=== PATIENT | female | born 1940 | race Caucasian/White ===

== ENCOUNTER 2021-02-01 06:18 | Inpatient (IN) | payer MEDICARE, OTHER, SELFPAY ==
[2020-12-28 09:51] VITALS: BMI 19.4
[2021-02-01] VITALS (12 sets, daily range): BP systolic 116–187; BP diastolic 63–98; PULSE 75–101; RESP 10–16; TEMP 36–36.9; O2SAT 92–99; BMI 19.4
[2021-02-01] MEDS: ACETAMINOPHEN 325 MG TABLET 975 MG PO ×2 (07:20→20:21)
[2021-02-01] MEDS: CELECOXIB 200 MG CAPSULE PO (07:21)
[2021-02-01] MEDS: PREGABALIN 75 MG CAPSULE PO (07:21)
[2021-02-01] MEDS: VANCOMYCIN 1,000 MG/200 ML PIGGYBACK 200 MG IV ×2 (07:21→18:31)
[2021-02-01] MEDS: LACTATED RINGERS 1,000 ML 84 ML IV (07:26)
--- NOTE | 2021-02-01 07:35 | PM.PREOP ---
Pre-operative Note Interval Note History & Physical reviewed/Exam performed by Physician: Yes Changes to H&P: No
--- NOTE | 2021-02-01 07:36 | PM.HP.1 ---
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 Patient History Medical History Anxiety Asthma Celiac disease Easy bruisability GERD (gastroesophageal reflux disease) HLD (hyperlipidemia) HTN (hypertension) Hypothyroid Inflammation Memory changes Osteoarthritis Sleep disorder Surgical History History of esophagogastroduodenoscopy (EGD) History of hysterectomy History of total left hip replacement History of total right hip replacement History of total right knee replacement Hx of cholecystectomy S/P left unicompartmental knee replacement Family & Social History Social History: household members spouse Prior Living Arrangements House Safety & Behavioral: Feels Safe in Current Yes Environment Been Physically Hurt or No Threatened By a Person Suicidal Ideation Description None Suicide Plan Description No Plan Tobacco & Substance use: Tobacco type cigarettes Smoking Status Former smoker alcohol intake current alcohol intake frequency a few times a month Substance Use Type does not use Meds Home Medications and Allergies Home Medications Medication Instructions Recorded Confirmed Type albuterol sulfate 90 mcg/actuation 1 - 2 inh INHALATION Q6H PRN 12/28/20 02/01/21 History aerosol inhaler atorvastatin 10 mg tablet 10 mg PO QPM 12/28/20 02/01/21 History carboxymethylcellulose sodium 1 % 1 drp EYE-BOTH TID 12/28/20 02/01/21 History eye drops in a dropperette cyclosporine 0.05 % eye drops in a 1 drp EYE-BOTH BEDTIME 12/28/20 02/01/21 History dropperette (Restasis) levothyroxine 125 mcg tablet 125 mcg PO DAILY 12/28/20 02/01/21 History losartan 100 mg tablet 100 mg PO QAM 12/28/20 02/01/21 History loteprednol etabonate 0.5 % eye 1 drp EYE-BOTH BEDTIME 12/28/20 02/01/21 History drops,suspension mirtazapine 15 mg tablet 15 mg PO BEDTIME 12/28/20 02/01/21 History pantoprazole 40 mg tablet,delayed 40 mg PO BID 12/28/20 02/01/21 History release paroxetine HCl 10 mg tablet 15 mg PO QAM 12/28/20 02/01/21 History Allergies Allergy/AdvReac Type Severity Reaction Status Date / Time Penicillins Allergy Intermediate Rash-streak Verified 02/01/21 06:52 up my arm wheat Allergy Intermediate celiac's Verified 02/01/21 06:52 disease Exam Vital Signs (past 8 hours): - 02/01/21 07:28 Temperature 98.2 F Pulse Rate 75 Respiratory Rate 16 Blood Pressure 186/90 H Pulse Oximetry 99 Oxygen Delivery Method Room Air Narrative Exam Narrative: Significantly decreased range of motion to the left shoulder joint. Quite a bit of pain and crepitus with both active and passive range of motion shoulder. No sign of any shoulder instability. Still has normal rotator cuff function. Difficulty with forward flexion and abduction beyond 90?. External rotation 15? with the arm at the side internal rotation to back pocket. 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 Patient is interested in proceeding with a left total shoulder arthroplasty. The risk, benefits, alternatives, possible complications, operative course, and postop outcomes were discussed. Complications including but not limiting to bleeding, infection, fracture, nerve injury, continued pain postoperatively or instability postoperatively were discussed in detail. Medical complications including but not limited to deep venous thrombosis event, anesthesia complications with excessive bleeding, vascular events or cardiac events and other possible complications were discussed in detail. Need for postoperative rehabilitation and anticipated hospital stay and clinical course were discussed in detail. Patient acknowledges understanding and elects to proceed with surgery. Time Spent With Patient Critical Care time: I spent a total of [] minutes of critical care time on this patient's care today; this time is exclusive of procedural time.
--- NOTE | 2021-02-01 08:01 | SUR.PREOP ---
Block start time [0743] . Monitoring initiated and maintained throughout procedure. Oxygen and medications given per anesthesiologist instructions. Patient remained stable throughout procedure, no adverse reactions noted. Block end time [0752].
[2021-02-01] MEDS: GENTAMICIN 200 MG in SODIUM CHLORIDE 0.9% 100 ML 120 ML IV (08:21)
--- NOTE | 2021-02-01 08:35 | SUR.OPER ---
Beach chair with skytron shoulder positioner. Lower body on padded OR bed. Head in foam padded head cradle, secured with straps. Non-operative arm secured <90 degrees abduction. Pillow under knees. Safety belt at thigh. Cloth tape over blanket over lower legs.
[2021-02-01] MEDS: BUPIVACAINE 0.25% (PF) 30 ML, EPINEPHrine 0.3 MG INJ (08:50)
--- NOTE | 2021-02-01 09:01 | PM.PROC.1 ---
Procedures Date/Time Date of procedure: 02/01/21 Time of procedure: 07:40 General Procedure description: Ultrasound guided interscalene brachial plexus nerve block for post op pain control after left total shoulder arthroplasty by Dr. Tripathi. Risk and benefits of procedure discussed with patient. ASA monitoring applied to patient. O2 given via nasal cannula. 2 mg Versed and 100 mcg fentanyl given for procedural sedation. Skin site was prepped with chlorhexidine and allowed to fully dry. Sterile gloves, mask, hat and probe cover were used to maintain sterility. 2% lidocaine and 30ga needle was used to make a small skin wheal at needle insertion site. Under ultrasound guidance, a 21ga 50mm Pajunk needle was directed into the interscalene groove (middle/anterior scalenes) near the brachial plexus. Patient reported no parasthesias. After negative aspiration, 15 mL 0.5% ropivacaine and 7.5mg dexamethasone were injected around brachial plexus. Patient tolerated procedure well.
--- NOTE | 2021-02-01 10:14 | DI.RAD.S_ITS ---
PROCEDURE: XR SHOULDER LT MIN 2V INDICATIONS: Status post total shoulder arthroplasty TECHNIQUE: 2 views of the shoulder were acquired. COMPARISON: None. FINDINGS: Bones: Expected immediate postoperative appearance, status post left total shoulder arthroplasty. No evidence of hardware failure or loosening. No fractures or dislocations. No suspicious bony lesions. Visualized ribs appear intact. Soft tissues: No suspicious soft tissue calcifications. IMPRESSION: Expected immediate postoperative appearance, status post total left shoulder arthroplasty. Dictated by: Napoleon Melara M.D. on 02/01/2021 at 11:08 Approved by: Napoleon Melara M.D. on 02/01/2021 at 11:08
--- NOTE | 2021-02-01 10:15 | PM.OP.1 ---
Operative Date/Time/Diagnoses Date of procedure: 02/01/21 Time of procedure: 08:00 Pre-op diagnosis: Left end-stage arthritis glenohumeral joint Post-op diagnosis: same Procedure & Clinicians Procedure: Left total shoulder arthroplasty Same procedure as scheduled: Yes Indications: End-stage arthritis left shoulder Surgeon: Kashmir Tripathi Senior Consumer Insights Consultant: Yonas Carvajal Anesthesia Type: General and Peripheral nerve block Operative Notes Findings: Significant arthritic changes to the glenohumeral joint with complete loss of cartilage to both sides of the joint as well as osteophyte formation. Patient had significant synovitis and reactive tissue throughout the shoulder joint. Multiple loose bodies in the subcoracoid space. No sign of any high-riding humeral head. No sign of any significant rotator cuff tears. Closure Type: primary Specimen(s): none sent Applied: implant(s) (50 x 21 humeral head, 7 mm stem, medium glenoid) Estimated Blood Loss (mL): 100 Blood products transfused: none Procedure in detail: On date of service, Patient was met in the holding area. The operative site was signed and witnessed by the OR staff. The surgeries once again discussed with the patient and any remaining questions they had were answered fully. Patient was taken back to the operating theater and placed on the operating table in a supine position. Great care was taken to ensure that all bony prominences were properly padded. Patient was then placed into the beach chair position. The head and neck were properly positioned and secured. A timeout was performed verifying patient's name, procedure, and the operative site. The upper extremity was then prepped and draped in the normal sterile fashion. Previously, the bony anatomy and incision were marked out as well as injected with Marcaine with epinephrine. A deltopectoral approach was performed. 10 blade was used to incise the skin and fascial tissue. A deep knife was used to continue sharp dissection until the cephalic vein was visualized. The cephalic vein was dissected free allowing us to expose the deltopectoral interval. This interval was then developed. A Hawley elevator was used to free up the deltoid of any scarring both superficially as well as deeply. The vein and the deltoid were taken laterally while the pectoralis was taken medially. This gave us good visualization of the strap muscles. Patient had quite a bit of reactive tissue. This was sharply excised. We also removed a bursal sac filled with loose bodies in the subcoracoid space. Clavipectoral fascia was removed and the strap muscles were then retracted medially with the pectoralis. This gave us stabilization of the subscapularis. The circumflex vessels were ligated and the subscapularis was sharply excised off the lesser tuberosity and then tagged. Once the subscapularis was released we're able to dislocate the shoulder. Patient had end-stage arthritic changes to the humeral head as well as the glenoid with large osteophytes anterior inferiorly as well as posteriorly. A Ronger was then used to remove the osteophytes. Next, cutting guide was placed and a saw was used to remove the humeral head. Once the head was removed it was templated. A starting awl was then used to find the canal and then the humerus was reamed and broached. Trial stem was placed and a variety of heads were trialed. A protector placed for the osteotomy was then placed and and we turned our attention back to the subscapularis as well as the glenoid. The subscapularis was freed up and a 360? fashion. There was a significant amount of degenerative tissue involving the subscapularis as well as the glenohumeral joint capsule. C-arm good so the doesThe degenerative anterior and inferior capsular tissue was removed. This was followed by removing the degenerative labral tissue from around the glenoid as well as the biceps insertion. This gave us good visualization of the glenoid. Glenoid trials were used until we found the appropriate fit and curvature. Next the center hole was drilled followed by reaming of the glenoid. The wound was copiously irrigated after reaming. Next the pegs were drilled and a trial glenoid was impacted into place. Once we were satisfied with the preparation of the glenoid, the final component was cemented into place. This was followed by impaction. We Return to our attention back to the humerus. The protector plate was removed and heads were trialed once again and so we found the appropriate fit. The trials were removed and bone tunnels were made into the humeral neck. #2 FiberWire were passed through the bone tunnels for eventual subscapularis repair. The final stem and head were impacted into place and the shoulder was reduced. It was taken through range of motion and was felt to be stable in both posterior translation as well as external and internal rotation with abduction. The subscapularis was repaired back to the lesser tuberosity through the bone tunnels. This was then reinforced with soft tissue repair. Part of the rotator interval was then closed. A drain was placed and the rest of the wound was closed in a layered fashion. The shoulder was then cleaned dried and dressed and the patient was taken to the PACU in stable condition. Patient will follow our postoperative protocol for total shoulder arthroplasty. Complications: none Post-operative Condition: stable Disposition: Acute Care Plan for aftercare: Patient follow our postoperative protocol for a total shoulder arthroplasty
--- NOTE | 2021-02-01 11:08 | SUR.PHASEI ---
Pt in stable condition, transported to room 213 by Celestino Diaz and Anand Mckeon
--- NOTE | 2021-02-01 11:13 | PC.NURSE ---
Addendum entered by Radha Hudson R.N. 02/01/21 18:54: Patient has been up to void multiple times w/o complication. LR infusing @ 125 per orders. Patient tolerating advancement in diet. Endorses numbness in her upper arm, able to move all fingers but complains of heaviness. DSG CDI. Hemovac compressed. Pulses equal. RUE WNL. Call light in reach, patient denies further needs. Original Note: Patient arrived to floor at 1110, A/O x 3. LUE sling in place, dsg CDI, Hemovac compressed. Pulses equal, patient endorses numbness in LUE, able to wiggle fingers, pulse strong. Full ROM in RUE. IV site in L ankle WNL, VSS, 95% on RA. BP taken on R ankle. SCD's will remain off until Post op vitals are complete. Patient tolerating ice chips. Denies further needs at this time. Call light in reach, bed alarm on. , Kobi remains bedside.
[2021-02-01] MEDS: LACTATED RINGERS 1,000 ML 125 ML IV ×2 (11:46→20:21)
--- NOTE | 2021-02-01 14:40 | PT.IIE ---
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) Radiculopathy, cervical region (02/01/21) Surgery Performed Operation Date: 02/01/21 07:45 Actual Procedures p Total Shoulder Arthroplasty(Left) - Kashmir Tripathi MD Medical History (Last Reviewed 02/01/21 @ 07:36 by Kashmir Tripathi MD) Anxiety Asthma Celiac disease Easy bruisability GERD (gastroesophageal reflux disease) HLD (hyperlipidemia) HTN (hypertension) Hypothyroid Inflammation Memory changes Osteoarthritis Sleep disorder Physical Therapy Inpatient Evaluation/Re-Eval M1 PT/OT-IP Prior Functional Status Start: 02/01/21 15:18 Freq: NEEDED Status: Active Protocol: Document 02/01/21 14:40 AB (Rec: 02/01/21 15:30 AB [id number]) Medical Review Prior Functional Status Medical History Reviewed Yes Communication able to make needs known but with confusion Mobility and Gait pt statd that she is independent with all mobilities and ambulation without AD; stated that she walks a mile every other day Social History Household Members spouse Living Arrangements House Number of Floors (Floors) Two Floors Number of Stairs To Enter/Railing? pt can stay on main level has 2 steps without rails to enter Home Environment High Toilet,Walk in Shower Home Equipment Straight Cane,Shower Seat with Backrest,Hand Held Shower M2 PT-IP Current Condition Start: 02/01/21 15:18 Freq: NEEDED Status: Active Protocol: Document 02/01/21 14:40 AB (Rec: 02/01/21 15:30 AB [id number]) Physical Therapy Current Condition Current Condition Evaluation Date 02/01/21 Treatment Diagnosis s/p L TSA; difficulty in walking Onset Date 02/01/21 M3 PT-IP Subjective Start: 02/01/21 15:18 Freq: NEEDED Status: Active Protocol: Document 02/01/21 14:40 AB (Rec: 02/01/21 15:30 AB [id number]) Subjective Physical Therapy Visit Type Type Initial Evaluation Visit Start Time 14:40 Visit Stop Time 15:15 Total Visit Minutes 35 Number of BOOK SEWER Visits 0 Physical Therapy Visit Comments Patient Comments pt is agreeable to do PT; requested to use the toilet Therapy Pain Assessment Pain Present Pain Present Denied Pain M4 PT-IP Mobility and Gait Start: 02/01/21 15:18 Freq: NEEDED Status: Active Protocol: Document 02/01/21 14:40 AB (Rec: 02/01/21 15:30 AB [id number]) PT-Bed Mobility Assessment Supine to Sit Supine to Sit Standby Assistance Sit to Supine Sit to Supine Standby Assistance PT-Transfer Assessment Sit to and From Stand Sit to and from Stand Minimal Assistance,1 Person Assistance,Use of Upper Extremities Equipment Transfer Assistive Device None,Gait Belt Orthotic/Prosthetic Devices or Brace: Yes Transfers Transfer Destination Toilet Transfer Technique ambulated Transfer Ability Level of Assist Minimal Assistance,1 Person Assistance,Use of Upper Extremities Comments Mobility Comments educated pt on shoulder precautions but unable to maintain and needs constant reminders. pt completed supine to sit SBA. increase time needed to complete task. presents with RUE, trunk and head tremors. educated pt on sling management, elbow/wrist /hand HEP. pt stated that LUE is still numb and unable to move elbow/hand. positioned sling. pt completed sit to stand min A and ambulated to the toilet without AD min A and cues. presents with unsteady gait and pt tends to reach for the wall/bed for support. completed sit to stand from the toilet min A and ambulated back to the bed min A without AD. pt completed sit to supine SBA. positioned pt in bed. call light and table placed within reach. informed pt regarding current mobility level and will reassess tomorrow but may need to use SPC for steadiness and pt agreed. Caregiver training set up. pt called her spouse and spouse agreed to come in at 9 am tomorrow for caregiver training and spouse will also try to look for the SPC. Gait Assessment Gait Gait Assistance Required: Minimum Assistance Distance (Feet) 12 Able to Maintain Weight Bearing Status Yes During Gait Assistive Devices Assistive Device None,Gait Belt Orthotic/Prosthetic Devices or Brace: Yes Gait Deviations General Gait Pattern Antalgic,Decreased Stride Length,Decreased Feet Clearance,Step-to Gait Factors Limiting Gait Function Factors Limiting Gait Function Decreased Activity Tolerance, Decreased Sensation,Decreased Strength,Difficulty Following Directions,Limited Range of Motion,Poor Balance,Poor Safety Awareness PT-Balance Assessment Sitting Balance and Reactions Static Sitting Balance Ability Good Dynamic Sitting Balance Ability Good Standing Balance and Reactions Static Standing Balance Ability Fair Dynamic Standing Balance Ability Fair Device Used without AD M5 PT-IP Objective Assessments Start: 02/01/21 15:18 Freq: NEEDED Status: Active Protocol: Document 02/01/21 14:40 AB (Rec: 02/01/21 15:30 AB [id number]) Orientation Orientation/Cognition Level of Alertness Confusional State Orientation Name Language Function Ability No Deficits Noted Safety Awareness Decreased Safety Awareness Memory Description Short Term Impaired Comments pt stated that she still feels foggy Gross Range of Motion Lower Extremity ROM Assessment Within Functional Limits Strength Lower Extremity Strength Assessment Within Functional Limits Sensation Assessment Sensation Sensation Description Numbness,Tingling Comments Sensation Comments numbness on LUE M6 PT-IP Treatment Start: 02/01/21 15:18 Freq: NEEDED Status: Active Protocol: Document 02/01/21 14:40 AB (Rec: 02/01/21 15:30 AB [id number]) Physical Therapy Treatment Exercises Exercises Elbow Flexion/Extension,Wrist ROM,Hand ROM Education Education Provided Precautions,Weight Bearing Status,Post-Op Packet,Safety M7 PT-IP Assessment and Plan Start: 02/01/21 15:18 Freq: NEEDED Status: Active Protocol: Document 02/01/21 14:40 AB (Rec: 02/01/21 15:30 AB [id number]) PT Summary Assessment and Plan Potential Rehabilitation Potential Fair Status of Condition at Evaluation Evolving Summary Impairments Pain,ROM,Strength,Balance, Coordination,Sensation,Tone, Cognition,Bed Mobility, Transfers,Gait,Activity Tolerance Assessment Summary pt s/p L TSA 02/01/21. pt requiring min A with mobility without AD and needs cues to maintain shoulder precautions. caregiver training set up for tomorrow at 9 am. will continue to assess progress. will assess ambulation using SPC when appropriate. will also need to complete stiar climbing training prior to d/c . Goals Bed Mobility Goal Independent Transfer Goal Independent,Cane Gait Goal Independent,Cane Gait Distance 200 Other Goals improve ambulation without AD 200 ft SBA up/down 2 steps SPC/without AD SBA Days to Meet Goals 5 Frequency of Treatment Frequency Of Treatment Twice a Day Treatment Plan Physical Therapy Treatment Plan Bed Mobility Training,Transfer Training,Gait Training, Therapeutic Exercise,Balance Retraining,Post Op Education, Discharge Planning,Hot or Cold Pack,Neuromuscular Re-ed, Coordination Retraining,Manual Therapy Precautions Shoulder Precautions Sling,PROM,Internal Rotation to Body,No External Rotation, No Abduction,Forward Flexion to 90 degrees,Pendulums Weight Bearing Status Weight Bearing Status Non-Weight Bearing Allowed Weight Bearing Amount (enter % LUE NWB or #) (%) Recommendations To Nursing Amount of Assist Needed 1 Person Assist Discharge Recommendations PT Discharge Recommendations Home with / Assist Available,Outpatient PT Transportation Needs at Discharge Private Vehicle
[2021-02-01] MEDS: DOCUSATE 100 MG CAPSULE PO (20:21)
[2021-02-01] MEDS: ATORVASTATIN 20 MG TABLET 10 MG PO (20:22)
[2021-02-01] MEDS: CYCLOSPORINE 0.05% 1 EACH EYE-BOTH (20:23)
[2021-02-01] MEDS: PANTOPRAZOLE DR 40 MG TABLET PO (20:23)
[2021-02-01] MEDS: LOTEPREDNOL ETABONATE 0.5% 1 EACH EYE-BOTH (20:23)
[2021-02-01] MEDS: MIRTAZAPINE 15 MG TABLET PO (20:23)
[2021-02-01] MEDS: MAGNESIUM HYDROXIDE 30 ML UDC PO (20:23)
[2021-02-01] MEDS: ASPIRIN EC 81 MG TABLET PO (20:23)
[2021-02-01] MEDS: CARBOXYMETHYLCELLULOSE SODIUM 1% 1 EACH EYE-BOTH (20:24)
[2021-02-01] MEDS: HYDROCODONE/ACET 5/325 TABLET 2 TAB PO (23:57)
[2021-02-02] VITALS: BP 86/58; PULSE 82; RESP 14; TEMP 37; O2SAT 98
[2021-02-02 03:24] VITALS: BP 95/59; PULSE 79; RESP 12; TEMP 36.9; O2SAT 97
[2021-02-02 04:00] VITALS: BP 117/62
--- NOTE | 2021-02-02 04:40 | PC.NURSE ---
a/o, voices needs. 2pa bed mobility, 1pa ambulate w/ FWW to /from bathroom. LUE shoulder incision is covered, dressing is CDI. ice on most of the night, sling in place. + CSM PRN norco given at 0300 for c/o deep pain inside, as though the block is wearing off. continues w/ IVF, LR at 125/hour via PIV to left ankle. 4x4 gauze placed in between tubing and ankle to protect skin. b/p by CARPET INSTALLATION SPECIALIST this HS 80/50, after she was ambulating from the bathroom. reportedly a little dizzy. recheck b/p after supine for 10 min: 117/62.
[2021-02-02] MEDS: LACTATED RINGERS 1,000 ML 125 ML IV (04:46)
[2021-02-02] MEDS: OXYCODONE IR 5 MG TABLET PO (04:47)
[2021-02-02 06:02] LABS: Hematocrit 27.9 % (36-46); Hemoglobin 9.5 g/dL (12.0-16.0); Mean Corpuscular HGB Conc 33.9 % (30-36); Mean Corpuscular Hemoglobin 30.9 PG (26-34); Mean Corpuscular Volume 91.4 fL (80-100); Platelet Count 184 X10^3/uL (150-400); Red Blood Cell Count 3.06 X10^6/uL (4.0-5.2); Red Cell Distribution Width 13.1 % (11.6-14.8); White Blood Cell Count 5.6 X10^3/uL (4.5-11.0)
--- NOTE | 2021-02-02 07:30 | P.DS_ITS ---
History of Present Illness History of Present Illness Date Patient Seen: 02/02/21 Time Patient Seen: 07:30 Chief complaint: Left shoulder pain s/p left TSA Narrative: Patient is complaining of [id number] left shoulder pain. The current pain regimen is working well for her. She denies any new numbness or tingling. No fevers, chills, night sweats. Overall she is feeling well and like to be discharged home today. Discharge Providers Provider Date of admission: 02/01/21 06:18 Discharge Date: 02/02/21 Primary care physician: Doctor Deyanira MD Consults: 02/01/21 10:11 Consult to Discharge Planning Routine Comment: Consult to Physical Therapy Evaluate & Treat Comment: Physician Instructions: Evaluate and Treat Consult to Respiratory Therapy Evaluate & Treat Comment: Physician Instructions: Evaluate and treat Discharge provider: Cira Floyd PA-C Summary Hospital Course Discharge Diagnosis: Left end-stage arthritis glenohumeral joint Hospital Course: Operative Date/Time/Diagnoses Date of procedure: 02/01/21 Time of procedure: 08:00 Procedure & Clinicians Procedure: Left total shoulder arthroplasty Same procedure as scheduled: Yes Indications: End-stage arthritis left shoulder Surgeon: Kashmir Tripathi Reinforced Concrete Inspector: Yonas Carvajal Anesthesia Type: General and Peripheral nerve block Operative Notes Findings: Significant arthritic changes to the glenohumeral joint with complete loss of cartilage to both sides of the joint as well as osteophyte formation.? Patient had significant synovitis and reactive tissue throughout the shoulder joint.? Multiple loose bodies in the subcoracoid space.? No sign of any high-riding humeral head.? No sign of any significant rotator cuff tears. Closure Type: primary Specimen(s): none sent Applied: implant(s) (50 x 21 humeral head, 7 mm stem, medium glenoid) Estimated Blood Loss (mL): 100 Blood products transfused: none Status at Discharge Cognitive/behavioral status at discharge: oriented Functional status at discharge: uses cane/walker Overall status at discharge: patient is progressing back to baseline Exam Vital Signs (past 8 hours): - 02/02/21 00:00 02/02/21 03:24 02/02/21 04:00 Temperature 98.6 F 98.5 F Pulse Rate 82 79 Respiratory Rate 14 12 Blood Pressure 86/58 L 95/59 L 117/62 Pulse Oximetry 98 97 Oxygen Delivery Method Room Air Oxygen Flow Rate 0 Narrative Exam Narrative: Pleasant 80-year-old female, resting comfortably in bed, no acute distress. Dressing is clean, dry, intact. Sling was adjusted today. Bilateral upper extremities: Motor functions grossly intact, sensation is grossly intact to light touch. Objective Labs Result Diagrams: 02/02/21 05:40 Labs: Laboratory Results - last 24 hr 02/02/21 05:40 WBC 5.6 RBC 3.06 L Hgb 9.5 L Hct 27.9 L MCV 91.4 MCH 30.9 MCHC 33.9 RDW 13.1 Plt Count 184 PFSH Medical History Anxiety Asthma Celiac disease Easy bruisability GERD (gastroesophageal reflux disease) HLD (hyperlipidemia) HTN (hypertension) Hypothyroid Inflammation Memory changes Osteoarthritis Sleep disorder Surgical History History of esophagogastroduodenoscopy (EGD) History of hysterectomy History of total left hip replacement History of total right hip replacement History of total right knee replacement Hx of cholecystectomy S/P left unicompartmental knee replacement Social History household members: spouse Smoking Status: Former smoker alcohol intake: current Discharge Assessment & Plan Assessment and Plan Assessment: Stable status post left total shoulder arthroplasty Plan of Treatment: -mobilize with PT. Maintain sling. Continue with total shoulder arthroplasty protocols -continue with current pain regimen -DC home today after cleared by PT Discharge Plan Discharge Plan Patient Disposition: Home Discharge orders & Medications Prescriptions: New acetaminophen 500 mg capsule 500 mg PO Q4H MDD Max 3000 mg per day PRN (Reason: Pain and/or fever) Qty: 90 0RF aspirin 81 mg Tablet,Delayed Release (Dr/Ec) 81 mg PO BID 14 Days Qty: 28 0RF docusate sodium 100 mg Capsule 100 mg PO BID PRN (Reason: Constipation from narcotic pain meds) Qty: 20 0RF oxycodone 5 mg Tablet 5 mg PO Q4H PRN (Reason: Pain, Moderate (4-6)) Qty: 42 0RF Continued paroxetine HCl 10 mg Tablet 15 mg PO QAM 0RF atorvastatin 10 mg Tablet 10 mg PO QPM 0RF pantoprazole 40 mg Tablet,Delayed Release (Dr/Ec) 40 mg PO BID 0RF levothyroxine 125 mcg Tablet 125 mcg PO DAILY 0RF mirtazapine 15 mg Tablet 15 mg PO BEDTIME 0RF losartan 100 mg Tablet 100 mg PO QAM 0RF loteprednol etabonate 0.5 % Drops,Suspension 1 drp EYE-BOTH BEDTIME 0RF carboxymethylcellulose sodium 1 % Dropperette 1 drp EYE-BOTH TID 0RF Restasis 0.05 % Dropperette 1 drp EYE-BOTH BEDTIME 0RF albuterol sulfate 90 mcg/actuation Hfa Aerosol Inhaler 1 - 2 inh INHALATION Q6H PRN (Reason: Shortness Of Breath) 0RF Follow up/Referrals: Miscellaneous,Doctor, [Primary Care Provider] - Kashmir Tripathi MD [Physician] - (10-14 days for postoperative visit) Diet/Activity/Treatments Diet: Diet as Tolerated and Regular Activity: -continue with sling Cold/Heat Therapy: -use ice as needed for pain Other treatments: Medications: -Aspirin 81mg twice daily x2 weeks to prevent blood clots. -OTC Tylenol 500 mg 1 tablet every 4 hours as needed for pain/fever. Max 6 tablets per day. -Oxycodone 5 mg take 1-2 tablets every 4 hours as needed for moderate-severe pain (narcotic pain medication). -As needed medications: -Ducolax and /or MiraLax as needed for constipation from narcotic pain medications. -Pepcid AC as needed for stomach upset (usually from aspirin or ibuprofen). Dressing/Wound care: -Keep Aquacell dressing in place until postoperative follow-up office visit. -Okay to shower. Keep wound out of direct water stream. No soaking or submerging until all the scabs fall off (approximately 6 weeks). -Please call the office if dressing becomes wet, soiled, or saturated. Activities: -Continue with sling. -Continue with home exercises as directed by your physical therapist. -Ice your incision as needed for pain/inflammation/swelling. Protect your skin with a folded pillowcase. Follow-up: -Follow-up with your surgeon or PA in the office in 10-14 days after surgery. -Follow-up with your surgeon 6 weeks postoperatively. Call the office if you have chest pain, shortness of breath, significant swelling that will not resolve with elevating, fever over 101?, significantly worsening pain. [facility]: [phone] Skin/Wound/Dressing Care Report to your healthcare provider any signs of infection, such as:: chills, fever, night sweats, unusual drainage and unusual redness Visit Report/Discharge Packet Instructions: DI for Shoulder Replacement Stand Alone Forms: Surgery Discharge Discharge Data Primary Care Provider: Miscellaneous,Doctor
[2021-02-02 07:40] VITALS: BP 131/66; PULSE 70; RESP 16; TEMP 37; O2SAT 98
[2021-02-02] MEDS: PARoxetine 20 MG TABLET 15 MG PO (09:19)
[2021-02-02] MEDS: ASPIRIN EC 81 MG TABLET PO (09:19)
[2021-02-02] MEDS: LEVOTHYROXINE 125 MCG TABLET PO (09:19)
[2021-02-02] MEDS: PANTOPRAZOLE DR 40 MG TABLET PO (09:20)
--- NOTE | 2021-02-02 09:20 | PT.IPTN ---
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) Radiculopathy, cervical region (02/01/21) Surgery Performed Operation Date: 02/01/21 07:45 Actual Procedures p Total Shoulder Arthroplasty(Left) - Kashmir Tripathi MD Physical Therapy Treatment Note M2 PT-IP Current Condition Start: 02/01/21 15:18 Freq: NEEDED Status: Active Protocol: Document 02/01/21 14:40 AB (Rec: 02/01/21 15:30 AB [id number]) Physical Therapy Current Condition Current Condition Evaluation Date 02/01/21 Treatment Diagnosis s/p L TSA; difficulty in walking Onset Date 02/01/21 M3 PT-IP Subjective Start: 02/01/21 15:18 Freq: NEEDED Status: Active Protocol: Document 02/02/21 09:20 AB (Rec: 02/02/21 11:16 AB [email or web address]) Subjective Physical Therapy Visit Type Type Treatment Note Visit Start Time 09:20 Visit Stop Time 10:06 Total Visit Minutes 46 Number of MICROSTRATEGY BI DEVELOPER Visits 0 Physical Therapy Visit Comments Patient Comments pt is agreeable to do PT Therapy Pain Assessment Pain When Pain Assessed At Rest Pain Present Pain Present Pain Reported Location Left Shoulder Intensity 2 Scale Used Numeric (0 - 10) M4 PT-IP Mobility and Gait Start: 02/01/21 15:18 Freq: NEEDED Status: Active Protocol: Document 02/02/21 09:20 AB (Rec: 02/02/21 11:16 AB [email or web address]) PT-Bed Mobility Assessment Supine to Sit Supine to Sit Standby Assistance,Minimal Assistance Sit to Supine Sit to Supine Standby Assistance PT-Transfer Assessment Sit to and From Stand Sit to and from Stand Standby Assistance,Contact Guard Assistance,Use of Upper Extremities Equipment Transfer Assistive Device Gait Belt,Straight Cane Orthotic/Prosthetic Devices or Brace: Yes Transfers Transfer Destination Bed,Chair Transfer Technique Stand Step Pivot Transfer Ability Level of Assist Standby Assistance,Contact Guard Assistance,1 Person Assistance,Use of Upper Extremities Comments Mobility Comments spouse in room for caregiver training. pt sitting on chair . BP sittin/73. educated pt and spouse regarding shoulder precautions . educated spouse for donning /doffing of sling and was able to complete safely. pt also completed elbow/wrist/hand HEP . attempted pendulum but pt unable to relax L shoulder to do pendulum correctly but able to dangle LUE on the side and educated on hygiene care and dressing needs. educated spouse on use of safety belt and how to assist pt. spouse was able to put safety belt on pt and assisted pt with ambulation in room using walking stick ~ 30 ft CGA. EPB checked after ambulation: 133/89. pt agreed to do stairs. completed ambulation out of the room with spouse assisting using walking stick. completed up/ down platform step using walking stick and spouse assisted. completed x 2 sets. pt ambulated farther ~ 75 ft using walking stick and spouse assisted. pt ambulated back to her room. demonstrated sit to supine SBA , supine to sit initially with spouse assisting. educated pt on techniques. demonstrated bed mobility again SBA. pt step transfer to chair using walking stick SBA. positioned pt in bed. call light and table placed within reach. Gait Assessment Gait Gait Assistance Required: Contact Guard Assist,1 Person Assist Distance (Feet) 75 Able to Maintain Weight Bearing Status Yes During Gait Assistive Devices Assistive Device Gait Belt,Straight Cane Orthotic/Prosthetic Devices or Brace: Yes Gait Deviations General Gait Pattern Ataxic,Decreased Stride Length ,Decreased Feet Clearance Factors Limiting Gait Function Factors Limiting Gait Function Decreased Activity Tolerance, Decreased Strength,Difficulty Following Directions,Limited Range of Motion,Pain,Poor Balance,Poor Safety Awareness Stair Climbing Assessment Evaluation Level of Assist On Stairs Contact Guard Assistance,1 Person Assistance Devices Stair Climbing Assistive Devices Straight Cane Technique/Endurance Stair Climbing Direction Ascend and Descend Stair Climbing Technique Step to Step Number of Steps Climbed 1 Stair Climbing Set # Repetitions (reps) 2 M5 PT-IP Objective Assessments Start: 02/01/21 15:18 Freq: NEEDED Status: Active Protocol: Document 02/01/21 14:40 AB (Rec: 02/01/21 15:30 AB [id number]) Orientation Orientation/Cognition Level of Alertness Confusional State Orientation Name Language Function Ability No Deficits Noted Safety Awareness Decreased Safety Awareness Memory Description Short Term Impaired Comments pt stated that she still feels foggy Gross Range of Motion Lower Extremity ROM Assessment Within Functional Limits Strength Lower Extremity Strength Assessment Within Functional Limits Sensation Assessment Sensation Sensation Description Numbness,Tingling Comments Sensation Comments numbness on LUE M6 PT-IP Treatment Start: 02/01/21 15:18 Freq: NEEDED Status: Active Protocol: Document 02/02/21 09:20 AB (Rec: 02/02/21 11:16 AB [id number]) Physical Therapy Treatment Exercises Exercises Shoulder Pendulums,Elbow Flexion/Extension,Wrist ROM, Hand ROM Education Education Provided Precautions,Weight Bearing Status,Post-Op Packet,Safety M7 PT-IP Assessment and Plan Start: 02/01/21 15:18 Freq: NEEDED Status: Active Protocol: Document 02/02/21 09:20 AB (Rec: 02/02/21 11:16 AB [id number]) PT Summary Assessment and Plan Potential Rehabilitation Potential Good Summary Impairments Pain,ROM,Strength,Balance, Coordination,Sensation,Tone, Cognition,Bed Mobility, Transfers,Gait,Activity Tolerance Progress Towards Goals Progressing Toward Goals Assessment Summary caregiver training conducted and spouse was able to assist pt safely. pt plans to go home today and may go home when medically stable. Goals Bed Mobility Goal Independent Transfer Goal Independent,Cane Gait Goal Independent,Cane Gait Distance 200 Other Goals improve ambulation without AD 200 ft SBA up/down 2 steps SPC/without AD SBA Days to Meet Goals 5 Frequency of Treatment Frequency Of Treatment Twice a Day Treatment Plan Physical Therapy Treatment Plan Bed Mobility Training,Transfer Training,Gait Training, Therapeutic Exercise,Balance Retraining,Post Op Education, Discharge Planning,Hot or Cold Pack,Neuromuscular Re-ed, Coordination Retraining,Manual Therapy Precautions Shoulder Precautions Sling,PROM,Internal Rotation to Body,No External Rotation, No Abduction,Forward Flexion to 90 degrees,Pendulums Weight Bearing Status Weight Bearing Status Non-Weight Bearing Allowed Weight Bearing Amount (enter % LUE NWB or #) (%) Recommendations To Nursing Amount of Assist Needed 1 Person Assist Discharge Recommendations PT Discharge Recommendations Home with 16/09 Assist Available,Outpatient PT Transportation Needs at Discharge Private Vehicle
[2021-02-02] MEDS: HYDROCODONE/ACET 5/325 TABLET 2 TAB PO (09:21)
[2021-02-02] MEDS: DOCUSATE 100 MG CAPSULE PO (09:22)
[2021-02-02] MEDS: CARBOXYMETHYLCELLULOSE SODIUM 1% 1 EACH EYE-BOTH (09:22)
--- NOTE | 2021-02-02 11:07 | CM.DANOTE ---
Patient is a 80yo Female admitted for left shoulder arthroplasty performed by Dr. Tripathi. Patient resides at home with spouse, Kobi. Patient is fully independent at baseline and reports having a walking stick available for use as needed. P: Patient is anticipated to discharge home today pending PT clearance. Patient does not identify any discharge planning needs. Ins: Medicare with [facility] secondary [facility]ingo [facility] Discharge Planning/Care Management Advanced directive, confirm from FAMILY Start: 02/01/21 11:33 Freq: Q24H Status: Active Protocol: Document 02/01/21 11:33 FRANKIE (Rec: 02/01/21 11:39 FRANKIE [id number]) Advance Directive, confirm on record Time 11:39 Person contacted and patient Copy received No CM Discharge Assessment Start: 02/02/21 11:03 Freq: Status: Active Protocol: Document 02/02/21 11:04 FJ (Rec: 02/02/21 11:07 FJ [id number]) Discharge Planning Assessment Assigned Welfare Eligibility Interviewer Mingo Medina [facility] DPOA/Assigned Designee Name Spouse Kobi Contact Information [phone] Advance Directives? No Advance Directives on File No History Provided By Patient,Significant Other Has Patient been admitted in last 30 No days? Prior Living Arrangements House Household Members spouse Type of transporation used prior to Drives own vehicle admit Independent with ADL's Yes Is patient alert and oriented? Yes Comment fully independent Caregiver for Another No DME Already Rented / Owned Cane Patient/Family Preference OP PT Therapy Barriers to Discharge No Discharge Plan Home Transportation Arrangement Spouse Kobi Whiteboard Updated in Patient Room with Yes name and ext. # of Welfare Eligibility Interviewer Review Status In Process Next Review Type Continued Stay Review Pre-Anesthesia Assessment Start: 12/28/20 09:51 Freq: Status: Complete Protocol: Document 12/28/20 09:51 CAB (Rec: 12/28/20 10:52 CAB [id number]) Pre-Anesthesia Assessment Patient Information Reviewed Via Phone Assessment Assessment Completed With Patient Diagnostic Results BMP/CMP,CBC,EKG Comment Outside labs/EKG scanned, COVID screen @ 01/10/21 Primary Care Provider Shannan Hines Medical Clearance Received Yes Seen Specialist in Last 12 Months Yes Specialist Seen Orthopedist,Other Comment PCP clearance scanned Primary Language Korean In Service Education Teacher Required No Height 170.18 cm Weight 56.245 kg Body Mass Index (BMI) 19.4 Hearing Ability Normal Visual Assist Glasses Dentition Type Teeth, Natural Present Barriers to Learning Memory Hx Anesthesia Reactions No Hx Family Anesthesia Reaction No Hx Malignant Hyperthermia No Hx Blood Transfusions No Anesthesia Review Requested No alcohol intake current alcohol intake frequency a few times a month Smoking Status Former smoker Tobacco type cigarettes how long ago did patient quit smoking Quit 1989 Substance Use Type does not use Pain Present Pain Reported Musculoskeletal Symptoms Joint Pain,Limited Range of Motion,Neck Pain,Radiating Pain into Limb History of Falling (Recent or History of Yes ) Patient is completely paralyzed or No completely immobile Mental Status Oriented to own ability Is patient on oxygen? No Does patient have KIM/SOB No Hx Sleep Apnea No Currently Taking a Beta Juan No Hx Chest Pain No Hx SOB No Hx Syncope or Dizziness No Anti-Coagulant Therapy No Has a Telecommunication Equipment Repairer No Cardiac Testing No Hx Pacemaker/ICD No Pacemaker Rep Required? No Diet Type At Home Gluten Free dysphagia Yes: Nuts r/t esophageal inflammation Gastrointestinal Symptoms Diarrhea,Reflux Comment Celiac disease Bladder Pattern Frequency,Urgency Urinary Catheter Present No Hx Urinary Self Catheterization No Diabetes No Patient No Lactating No Hx Drug Resistant Organism Yes: C-diff approx 4-6 years ago Presence of External or Internal Medical Yes: Bilat hips/knees Devices Have you had any close contact with No someone diagnosed with COVID-19? Received a COVID vaccine? Yes Received all doses? Yes Marital Status Lives With spouse Prior Living Arrangements House Number of Floors (Floors) Two Floors Support System Child/Children,Spouse Does the Patient Have Assistance After Yes: Daughter will stay to Surgery assist with care at ID Patient Discharge Plan Description Return Home Comment Pt advised 1 night length of stay per surgeon Feels Safe in Current Environment Yes Been Physically Hurt or Threatened By a No Person in Current Environment Do you have thoughts of harming yourself None or others? Are you currently considering suicide? No Do you have a plan to hurt yourself or No Plan others? Do You Have Any Spiritual Beliefs That No May Affect Your HC Choices? Do You Have Any Cultural Practices That No May Affect Your HC Choices? Comment Ariel Who Can We Speak to About Patient's Care Family, friends Identifying Code for Release of Patient Declines to issue Information Health Care Proxy/Next of Kin Kobi () Health Care Proxy Emergency Contact Name Kobi () Emergency Contact Advance Directives? Yes Advance Directives on File No Requested Patient Bring Advanced Yes Directives DOS Power of Ambulance Driver Yes Power of Ambulance Driver Name Kobi () Power of Ambulance Driver PAC Instructions Do not shave/clip surgical site,Durable medical equipment ,Medications to take/avoid, Nasal antibiotic,No ETOH/ petroleum product on skin DOS, NPO,Post-op transportation,Pre -surgical wash,Sturdy shoes/ comfortable clothes,Do not bring valuables and remove jewelry
--- NOTE | 2021-02-02 19:48 | PC.NURSE ---
Discharge: Pt feeling out of it this am, sleepy appearing and having diff following instructions. She thinks it is from the oxycodone. Trial of vicodin for pain sinstead. Pt reported she felt better after the vicodin and her head had cleared. MD called and made aware of pt's wanting to have vicodin instead of oxy for pain. See new orders. Seen by PT and passed. Pt is voiding w/out problems. Tolerates diet w/out problems. Is more awake and aware. Drain d/c intact. Rx has been esent. Reviewed d/c packet. Questions answered.Pt d/c home via auto w/spouse.
== END 2021-02-02 15:00 | disposition home or self-care (01) | DRG 483 ==
LOC: OR 06:28 → AC 06:28
PROVIDERS: Admitting Provider Orthopaedic Surgery; Referring Provider Orthopaedic Surgery; Visit Provider Orthopaedic Surgery
PROC: 0RRK0JZ Replacement of Left Shoulder Joint with Synthetic Substitute, Open Approach (ICD-10-PCS; CPT 23472; principal; 2021-02-01 07:45)
DX: M19.012 Primary osteoarthritis, left shoulder (principal); M25.712 Osteophyte, left shoulder; E78.5 Hyperlipidemia, unspecified; I10 Essential (primary) hypertension; E03.9 Hypothyroidism, unspecified; K21.9 Gastro-esophageal reflux disease without esophagitis; F41.9 Anxiety disorder, unspecified; Z87.891 Personal history of nicotine dependence; Z20.822 Contact with and (suspected) exposure to COVID-19
CPT/HCPCS: 36415; 64450; 73030; 85027; 87635; 97162; 97530; C1776; C9803; J0171; J1100; J1885; J2250; J2405; J2704; J3010

== ENCOUNTER 2022-10-30 11:01 | Inpatient (IN) | payer MEDICARE, OTHER, SELFPAY ==
[2021-02-01 11:24] VITALS: BMI 19.4
[2022-10-10 14:55] VITALS: BMI 20.3
[2022-10-30] VITALS (13 sets, daily range): BP systolic 140–188; BP diastolic 75–97; PULSE 75–104; RESP 12–20; TEMP 35.5–36.2; O2SAT 91–98; BMI 20.3
--- NOTE | 2022-10-30 | DI.RAD.S_ITS ---
PROCEDURE: XR CERVICAL SPINE 2V OR 3V INDICATIONS: ACDF C5-6, C6-7 TECHNIQUE: 2 intraoperative fluoroscopic view(s) of the cervical spine were acquired. COMPARISON: None. FINDINGS: Intraoperative fluoroscopic images of cervical spine shows anterior fusion at C5 through C7 levels. IMPRESSION: Fluoro guidance was provided intraoperatively for ACDF at C5-6 and C6-7 levels. Dictated by: Andrea Arreola M.D. on 10/30/2022 at 17:03 Approved by: Andrea Arreola M.D. on 10/30/2022 at 17:04
[2022-10-30] MEDS: LACTATED RINGERS 1,000 ML 42 ML IV ×2 (11:55→14:15)
[2022-10-30] MEDS: ACETAMINOPHEN 325 MG TABLET 975 MG PO (11:58)
--- NOTE | 2022-10-30 12:15 | PM.PREOP ---
Pre-operative Note COVID-19 Criteria for continued procedure: Expected advancement of disease process, Possibility delay results in more complex future surgery or treatment, Increased loss of function, Continuing or worsening of significant or severe pain, Deterioration of the patient's condition or overall health and Delay expected to result in less-positive ultimate med/surg outcome Interval Note History & Physical reviewed/Exam performed by Physician: Yes Changes to H&P: No
[2022-10-30] MEDS: CEFAZOLIN 2 GM/100 ML PREMIX 100 ML IV ×2 (13:19→21:14)
--- NOTE | 2022-10-30 13:38 | SUR.OPER ---
Supine on padded OR bed, head on pillow, arms padded and tucked at sides, legs uncrossed, safety belt at thigh, tape over blanket over lower legs .
[2022-10-30] MEDS: BUPIVACAINE 0.25% (PF) 30 ML, EPINEPHrine 0.15 MG INJ (13:52)
--- NOTE | 2022-10-30 14:56 | P.OP_ITS ---
Operative Date/Time/Diagnoses Date of procedure: 10/30/22 Time of procedure: 12:00 Pre-op diagnosis: 1. C5-6, C6-7 spinal stenosis 2. C5-6, C6-7 spondylosis with radiculopathy Post-op diagnosis: same Procedure & Clinicians Procedure: 1. C5-6 C6-7 anterior cervical diskectomy and fusion 2. C5-6 C6-7 anterior interbody cage placement 3. C5-6 C6-7 anterior instrumentation with plate and screw placement in C5-C6 and C7 vertebrae 4. Utilization of microsurgical technique and operating microscope Same procedure as scheduled: Yes Indications: Patient has been having chronic neck pain and worsening cervical radiculopathy. Patient failed multiple conservative management with worsening pain weakness and numbness in her upper extremity. Patient has been having difficulty performing activity of daily living. After discussing risks benefits of treatment options, patient elected proceed with surgery. Surgeon: Feliz Verduzco Rural Sociologist: Suzan Rothman Click Yes if Unassisted: No Anesthesia Type: General Operative Notes Closure Type: primary Specimen(s): none sent Prosthetic devices, grafts, tissues, transplants, or devices: Globus Extend plate, Hedron C cages Estimated Blood Loss (mL): 5 Blood products transfused: none Procedure in detail: Patient was seen in the preoperative area. Risks and benefits of the surgery was discussed with the patient. Operative consent was obtained and placed in the chart. Patient was then taken to the operative room. Prophylactic antibiotic was given less than 0.5 hr prior to skin incision. General anesthesia was administered. Patient was placed into a supine position on her radiolucent tab le. Bilateral shoulders were taped down to allow proper C-arm imaging. Anterior cervical area was prepped and draped in a sterile fashion. Time-out was performed at this time. Using lateral C-arm imaging, the level between C5 and C7 was identified and marked on patient's neck. A oblique incision from midline towards medial border of sternocleidomastoid muscle was made. The platysma muscle was incised in line with skin incision. Metzenbaum scissor was used to develop the plane between the medial border of sternocleidomastoid d and the strap muscles medially. The carotid sheath and its contents were identified and protected behind the hand- held retractor during the entire case. The plane between the carotid sheath and strap muscles was developed with Metzenbaum scissors. Dissection was made down to the level of the anterior cervical fascia. Longus colli muscle was incised on the anterior aspect of vertebral bodies bilaterally from C5-C7. Spinal needle was placed into the C5-6 disc space and confirmed with lateral C-arm imaging. Using microsurgical technique and operative microscope, anterior cervical diskectomy was performed at C5-6 and C6-7 level. This was done by removing the disc material, removing the anterior and posterior osteophytes posterior longitudinal ligaments along with performing bilateral foraminotomies at both levels. Patient was found to have severe central and foraminal stenosis at both levels. Patient's stenosis was fully decompressed after decompression was completed. After the diskectomy was completed, 2 anterior interbody cages were obtained. The cages were packed with DBM bone grafting material. One cage each along with the bone grafting material was then packed into the interbody spaces from C5-C7 with one cage into each interbody level. After the cages were placed, the anterior cervical plate was stabilized to the C5-C7 vertebrae using 2 screws at each each level. Total 6 screws were placed. After confirming placement of the hardware with AP and lateral C-arm imaging, the screws were locked into the plate using the locking mechanism and torque limiting screwdriver. After the hardware was placed and confirmed with AP and lateral C-arm imaging, the wound was irrigated with sterile normal saline. The platysma muscle and the subcutaneous tissue was closed with 2-0 Vicryl. The skin was closed with 4-0 Monocryl and Steri-Strips. Patient tolerated the procedure well. Patient was transferred recovery room in stable condition. There were no complications. Complications: none Post-operative Condition: stable Disposition: PACU Plan for aftercare: Admit to inpatient hospital
[2022-10-30] MEDS: LACTATED RINGERS 1,000 ML 125 ML IV (16:44)
[2022-10-30] MEDS: ATORVASTATIN 20 MG TABLET 10 MG PO (21:21)
[2022-10-30] MEDS: PANTOPRAZOLE DR 40 MG TABLET PO (21:21)
[2022-10-30] MEDS: SENNOSIDES 8.6 MG TABLET 17.2 MG PO (21:21)
[2022-10-30] MEDS: DOCUSATE 100 MG CAPSULE PO (21:22)
[2022-10-30] MEDS: MIRTAZAPINE 15 MG TABLET PO (21:22)
[2022-10-30] MEDS: hydrOXYzine pamoate 25 MG CAPSULE PO (21:26)
[2022-10-31] VITALS: BP 170/71; PULSE 97; RESP 20; TEMP 35.6; O2SAT 98
[2022-10-31] MEDS: CEFAZOLIN 2 GM/100 ML PREMIX 100 ML IV (06:26)
[2022-10-31] MEDS: LEVOTHYROXINE 125 MCG TABLET PO (06:26)
[2022-10-31] MEDS: OXYCODONE IR 5 MG TABLET PO (06:29)
[2022-10-31 07:00] VITALS: BP 191/94; PULSE 83; RESP 18; TEMP 36.2; O2SAT 98
--- NOTE | 2022-10-31 07:34 | P.DS_ITS ---
History of Present Illness History of Present Illness Date Patient Seen: 10/31/22 Time Patient Seen: 07:34 Chief complaint: Neck pain Narrative: Patient notes pain is mild. Denies fever or chills. Denies any difficulty swallowing. No shortness of breath. Discharge Providers Provider Date of admission: 10/30/22 11:01 Discharge Date: 10/31/22 Primary care physician: Carey Washington MD Consults: 10/30/22 16:13 Consult to Occupational Therapy Evaluate & Treat Comment: Physician Instructions: Evaluate and treat Consult to Physical Therapy Evaluate & Treat Comment: Physician Instructions: Evaluate and Treat Discharge provider: Yonas Carvajal PA-C Summary Hospital Course Discharge Diagnosis: 1. C5-6, C6-7 spinal stenosis 2. C5-6, C6-7 spondylosis with radiculopathy Post-op diagnosis: same Hospital Course: 1.? C5-6 C6-7 anterior cervical diskectomy and fusion 2.? C5-6 C6-7 anterior interbody cage placement 3.? C5-6 C6-7 anterior instrumentation with plate and screw placement in C5-C6 and C7 vertebrae 4.? Utilization of microsurgical technique and operating microscope Same procedure as scheduled: Yes Indications: Patient has been having chronic neck pain and worsening cervical radiculopathy. Patient failed multiple conservative management with worsening pain weakness and numbness in her upper extremity.? Patient has been having difficulty performing activity of daily living.? After discussing risks benefits of treatment options, patient elected proceed with surgery. Surgeon: Feliz Verduzco Certified Medical Transcriptionist: Suzan Rothman Click Yes if Unassisted: No Anesthesia Type: General Operative Notes Closure Type: primary Specimen(s): none sent Prosthetic devices, grafts, tissues, transplants, or devices: Globus Extend plate, Hedron C cages Estimated Blood Loss (mL): 5 Blood products transfused: none Patient admitted today for the above-mentioned procedure. Patient consented to the same. Patient underwent cervical fusion on October 30, 2022. Patient back in her room recovering well as in stable condition. Soft collar for comfort. Multimodal pain control. Discharge home today after physical therapy is safe for home environment. Status at Discharge Cognitive/behavioral status at discharge: oriented Functional status at discharge: uses cane/walker Overall status at discharge: patient is progressing back to baseline Exam Vital Signs (past 8 hours): - 10/31/22 00:00 Temperature 96.0 F L Pulse Rate 97 H Respiratory Rate 20 Blood Pressure 170/71 H Pulse Oximetry 98 Oxygen Flow Rate 0 Oxygen Delivery Method Room Air Oxygen Flow Rate 0 Narrative Exam Narrative: 81-year-old female out of bed pressure in her teeth. Soft collar in place. Neurovascular status is intact bilateral upper extremities. Const General: cooperative and comfortable Nutritional Appearance: average body habitus Orientation: alert Resp Effort & Inspection: normal respiratory effort and able to speak in complete sentences PFSH Medical History Anxiety Asthma Celiac disease Easy bruisability GERD (gastroesophageal reflux disease) HLD (hyperlipidemia) HTN (hypertension) Hypothyroid IBS (irritable bowel syndrome) Inflammation Memory changes Osteoarthritis Peripheral artery disease Sleep disorder Surgical History History of esophagogastroduodenoscopy (EGD) History of hysterectomy History of total left hip replacement History of total right hip replacement History of total right knee replacement Hx of cholecystectomy S/P left unicompartmental knee replacement Social History household members: spouse Smoking Status: Former smoker alcohol intake: current Discharge Assessment & Plan Assessment and Plan Assessment: 81-year-old female progressing as expected Plan of Treatment: Soft collar for comfort Multimodal pain management Discharge home today after physical therapy if safe for home environment Discharge Plan Discharge Plan Patient Disposition: Home Provider Discharge Comment: DC after PT if safe for home environment Discharge orders & Medications Prescriptions: New oxycodone 5 mg Tablet 5 mg PO Q3H PRN (Reason: Pain, Moderate (4-6)) Qty: 30 0RF Continued paroxetine HCl 10 mg Tablet 30 mg PO QAM atorvastatin 10 mg Tablet 10 mg PO QPM pantoprazole 40 mg Tablet,Delayed Release (Dr/Ec) 40 mg PO BID levothyroxine 125 mcg Tablet 125 mcg PO DAILY mirtazapine 15 mg Tablet 15 mg PO BEDTIME losartan 100 mg Tablet 100 mg PO QAM loteprednol etabonate 0.5 % Drops,Suspension 1 drp EYE-BOTH BEDTIME carboxymethylcellulose sodium 1 % Dropperette 1 drp EYE-BOTH TID cyclosporine [Restasis] 0.05 % Dropperette 1 drp EYE-BOTH BEDTIME albuterol sulfate 90 mcg/actuation Hfa Aerosol Inhaler 1 - 2 inh INHALATION Q6H PRN (Reason: Shortness Of Breath) acetaminophen 500 mg capsule 500 mg PO Q4H MDD Max 3000 mg per day PRN (Reason: Pain and/or fever) Qty: 90 0RF docusate sodium 100 mg Capsule 100 mg PO BID PRN (Reason: Constipation from narcotic pain meds) Qty: 20 0RF clobetasol 0.05 % Ointment 1 applic TOPICAL WEEKLY estradiol 0.01 % (0.1 mg/gram) cream VAGINAL aspirin 81 mg Capsule 81 mg PO DAILY Discontinued tramadol 50 mg Tablet 50 mg PO BID PRN (Reason: pain) Follow up/Referrals: Carey Washington MD [Primary Care Provider] - Feliz Verduzco MD [Physician] - As previously scheduled (Follow up with Melonie Logan PA-C, on 11/14/2022 @ 4:00 pm at [facility] office in [place].) Diet/Activity/Treatments Diet: Diet as Tolerated Diet comment: Start with very soft foods, advance to firmer textures as tolerated. Activity: No lifting over 10 pounds. Wear soft cervical collar as needed for comfort; recommend wearing while sitting or standing for long periods of time. Some patients feel more comfortable sleeping with it on, but you do not need to do this. Cold/Heat Therapy: Heating pad to back of neck and between shoulder blades as needed for pain. Skin/Wound/Dressing Care Report to your healthcare provider any signs of infection, such as:: chills, fever, night sweats, unusual drainage and unusual redness Dressing: May shower. If dressing becomes wet inside, may remove. Leave steri strips in place until follow up in office. Visit Report/Discharge Packet Instructions: DI for Prescription Opioid Use, DI for Anterior Cervical Discectomy and Fusion Stand Alone Forms: Patient Portal/API, Stroke Signs & Symptoms, Surgery Discharge Discharge Data Primary Care Provider: Carey Washington
[2022-10-31 08:35] VITALS: BP 191/94; PULSE 83
[2022-10-31] MEDS: LOSARTAN 50 MG TABLET 100 MG PO (08:35)
[2022-10-31] MEDS: PANTOPRAZOLE DR 40 MG TABLET PO (08:35)
--- NOTE | 2022-10-31 08:35 | OT.IP.EVAL ---
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 anterior instrumentation - Feliz Verduzco MD Past Medical History (Last Reviewed 10/31/22 @ 07:37 by Yonas Carvajal PA-C) Anxiety Asthma Celiac disease Easy bruisability GERD (gastroesophageal reflux disease) HLD (hyperlipidemia) HTN (hypertension) Hypothyroid IBS (irritable bowel syndrome) Inflammation Memory changes Osteoarthritis Peripheral artery disease Sleep disorder Surgical History (Last Reviewed 10/31/22 @ 07:37 by Yonas Carvajal PA-C) History of esophagogastroduodenoscopy (EGD) History of hysterectomy History of total left hip replacement History of total right hip replacement History of total right knee replacement Hx of cholecystectomy S/P left unicompartmental knee replacement Occupational Therapy Inpatient Evaluation/Re-Eval M1 PT/OT-IP Prior Functional Status Start: 10/31/22 10:08 Freq: NEEDED Status: Active Protocol: Document 10/31/22 08:35 [facility] (Rec: 10/31/22 10:29 [facility] [id number]) Medical Review Prior Functional Status Communication Independent Mobility and Gait Able to walk without a device. Activities of Daily Living and IADL's Able to do ADL and IADL needs but had intermittent pain. Social History Household Members spouse Living Arrangements House Number of Floors (Floors) Two Floors Number of Stairs To Enter/Railing? Pt has 2 steps with no rails and downstairs to get to the laundry. Pt's bedroom in on the main level. Home Environment High Toilet,Walk in Shower Home Equipment Front Wheel Walker,Straight Cane,Shower Seat with Backrest ,Hand Held Shower Additional Social History Comment Pt is very hard of hearing and sleeps downstairs. M2 OT-IP Current Condition Start: 10/31/22 10:08 Freq: Status: Active Protocol: Document 10/31/22 08:35 [facility] (Rec: 10/31/22 10:29 [facility] [id number]) Occupational Therapy Current Condition Current Condition Evaluation Date 10/31/22 Treatment Diagnosis S/P C5-6, C6-7 Diagnosis Onset Date 10/30/22 Post Operative Precautions Cervical Spine Precautions Soft Collar for Comfort,No Heavy Lifting,Log Roll M3 OT- IP Subjective and Pain Start: 10/31/22 10:08 Freq: Status: Active Protocol: Document 10/31/22 08:35 [facility] (Rec: 10/31/22 10:29 [facility] [id number]) OT- Subjective Occupational Therapy Visit Type Type Initial Evaluation Visit Start Time 08:35 Visit Stop Time 09:40 Total Visit Minutes 65 Occupational Therapy Visit Comments Patient Comments Pt agreed to do OT eval and get dressed. Patient/Caregiver Goals To go home. OT Pain Assessment Pain When Pain Assessed At Rest Pain Present Pain Present Pain Reported Location neck Intensity 1 Scale Used Numeric (0 - 10) M4 OT- IP ADL's Start: 10/31/22 10:08 Freq: Status: Active Protocol: Document 10/31/22 08:35 [facility] (Rec: 10/31/22 10:29 [facility] [id number]) OT [id number] Comments OT Self-Feeding Comments Able to educated pt to eat softer food, sit upright while eating, tuck her chin when swallowing, and use a carrier to take her medications. OT ADL-Grooming General Evaluation Grooming Ability Independent Comments OT Grooming Comments Able to do while standing in front of the sink with FWW. OT ADL-Oral Care General Eval Oral Care Ability Independent Comments Oral Care Comments Spoke to pt about benefit of a tongue insurance advisor for hygiene in addition to brushing her tongue. OT ADL-Dressing General Eval Upper Body Dressing Ability Independent Lower Body Dressing Ability Minimal Assistance Areas Needing Assistance Shoes Comments OT Dressing Comments Pt not able to tie her shoes at this time due to having to flex her neck too much to reach over. Suggested pt's assist or use of slip on shoes. Pt able to kam/doff her soft collar but may need her to assist at times . OT ADL-Toileting Comments OT Toileting Comments Pt states has independently been using the toilet. Spoke of tapering water drinking at night or use of pads. Pt states her doctor states she should not wears pads and wear cotton underwear for breathability. Able to look up with pt incontinence cotton underwear that pt could possible purchase. Pt however agreed to wear a pad for now. OT ADL-Bathing Comments OT Bathing Comments Spoke of showering from chest down. In addition if the soft collar gets wet that it can be placed in the dryer to dry. M5 OT- IP IADL's Start: 10/31/22 10:08 Freq: Status: Active Protocol: Document 10/31/22 08:35 [facility] (Rec: 10/31/22 10:29 [facility] [id number]) OT-Instrumental Activities of Daily Living Deficits IADL Deficits Identified Deficits Home Safety Awareness Awareness of Need for Assistance at Home Good Awareness Ability to Problem Solve Emergency Able to Problem Solve Situations M6 OT- IP Functional Cognition Start: 10/31/22 10:08 Freq: Status: Active Protocol: Document 10/31/22 08:35 [facility] (Rec: 10/31/22 10:29 [facility] [id number]) Cognitive Factors Limiting Selfcare Function Cognitive Ability Level of Alertness Alert Patient Orientation Name,Age,Birthday,Month,Date, Year,Day of Week,Place, Situation Attention Span Ability Capable of Focused Attention, Capable of Sustained Attention Ability to Follow Commands Able to Follow Multi-Step Commands Safety Awareness Underestimates Need for Assistance Cognitive Comments Cognitive Assessment Comments Pt needing cues to slow down. Pt needing repetitive education for log rolling to ensure pt using her arms,legs and trunk to get up and down form the bed and not twist at her neck or initiate movements wit her head. OT- Vision and Hearing OT- Hearing Assessment OT- Hearing Assessment WFL OT- Vision Assessment Visual Acuity WFL M7 OT- IP Mobility and Balance Start: 10/31/22 10:08 Freq: Status: Active Protocol: Document 10/31/22 08:35 [facility] (Rec: 10/31/22 10:29 [facility] [id number]) OT- Bed Mobility Assessment Rolling Type of Rolling Bilateral Level of Assistance Standby Assistance Supine to Sit Supine to Sit Assist Standby Assistance Sit to Supine Sit to Supine Assist Standby Assistance OT-Transfer Assessment Sit to and From Stand Sit to and from Stand Independent Transfers Transfer Ability Independent,Standby Assistance Technique Transfer Destination Bed,Chair Transfer Technique Stand Step Pivot Devices Transfer Assistive Devices None,Front Wheeled Walker Comments Mobility Comments Pt independent with FWW and distal SBA without a device. OT- Balance Assessment Sitting Balance and Reactions Static Sitting Balance Ability Normal Dynamic Sitting Balance Ability Normal Standing Balance and Reactions Static Standing Balance Ability Good Dynamic Standing Balance Ability Good M8 OT- IP Objective Assessments Start: 10/31/22 10:08 Freq: Status: Active Protocol: Document 10/31/22 08:35 [facility] (Rec: 10/31/22 10:29 [facility] [id number]) OT Gross Range of Motion Upper Extremity Range of Motion Assessment Within Functional Limits M9 OT- IP Assessment and Plan Start: 10/31/22 10:08 Freq: Status: Active Protocol: Document 10/31/22 08:35 [facility] (Rec: 10/31/22 10:29 [facility] [id number]) OT Summary Assessment and Plan Potential Rehabilitation Potential Excellent Analytic Complexity at Evaluation Low Summary OT Impairments Pain,Balance,Functional Mobility,Dressing,Bathing, Shower Transfers Progress Towards Goals Progressing Toward Goals Assessment Summary Pt low complexity and main barriers are stairs,pain, and will need some assist for her shoes and showering needs. Pt to go home with her when medically stable. Goals Self-Feeding Goal Independent Dressing Goal Independent Bathing Goal Standby Assistance Toilet Transfer Goal Independent Shower Transfer Goal Independent Days to Meet Goals 1 Frequency of Treatment Frequency Of Treatment Once a Day Treatment Plan OT Treatment Plan ADL Training,Functional Mobility,Patient/Family Education,Discharge Planning Discharge Recommendations OT Discharge Recommendations Home with Assistance Transportation Needs at Discharge Private Vehicle
[2022-10-31] MEDS: PARoxetine 20 MG TABLET 30 MG PO (08:36)
[2022-10-31] MEDS: ACETAMINOPHEN 325 MG TABLET 650 MG PO (08:36)
[2022-10-31] MEDS: DOCUSATE 100 MG CAPSULE PO (08:36)
--- NOTE | 2022-10-31 09:12 | CM.DANOTE ---
Initial DCP Assessment Note Pt is an 81 yo female, resident of [place], now POD#1 [address] surgery [address] Verduzco PCP: Carey Washington Payer: [employer]/Efren Reviewed chart, patient is indp at baseline and planning to discharge home w/spouse to assist as needed. Therapies pending this morning. Attempted initial assessment and OT was starting their eval. Patient sitting upright with neck collar on. DC order from Ortho has already been initiated this morning. No barriers identified at this time to patient's safe discharge home w/family to assist; close outpatient f/u recommended. Awaiting dispo recs from therapy team CM team following closely in case any Dc needs or concerns arise SHANTI Chung Discharge Planning/Care Management CM Discharge Assessment Start: 10/31/22 09:07 Freq: Status: Active Protocol: Document 10/31/22 09:07 [facility] (Rec: 10/31/22 09:12 [id number]) Discharge Planning Assessment Assigned Manual Lathe Machinist SHANTI Mckay DPOA/Assigned Designee Name Kobi Ubaldo, spouse Contact Information [phone] Advance Directives? Yes Advance Directives on File No History Provided By Patient,Significant Other, Medical Record Prior Living Arrangements House Household Members spouse Type of transporation used prior to Drives own vehicle admit Independent with ADL's Yes: Poor activity tolerance and poor balance Is patient alert and oriented? Yes Patient/Family Preference OP PT Therapy Barriers to Discharge No Discharge Plan Home Transportation Arrangement Spouse Kobi Referrals Initiated None needed
--- NOTE | 2022-10-31 10:58 | PT.IIE ---
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 anterior instrumentation - Feliz Verduzco MD Surgical History (Last Reviewed 10/31/22 @ 07:37 by Yonas Carvajal PA-C) History of esophagogastroduodenoscopy (EGD) History of hysterectomy History of total left hip replacement History of total right hip replacement History of total right knee replacement Hx of cholecystectomy S/P left unicompartmental knee replacement Medical History (Last Reviewed 10/31/22 @ 07:37 by Yonas Carvajal PA-C) Anxiety Asthma Celiac disease Easy bruisability GERD (gastroesophageal reflux disease) HLD (hyperlipidemia) HTN (hypertension) Hypothyroid IBS (irritable bowel syndrome) Inflammation Memory changes Osteoarthritis Peripheral artery disease Sleep disorder Physical Therapy Inpatient Evaluation/Re-Eval M1 PT/OT-IP Prior Functional Status Start: 10/31/22 10:08 Freq: NEEDED Status: Active Protocol: Document 10/31/22 10:36 AB (Rec: 10/31/22 10:58 AB [id number]) Medical Review Prior Functional Status Medical History Reviewed Yes Communication Independent Mobility and Gait Able to walk without a device. Activities of Daily Living and IADL's Able to do ADL and IADL needs Social History Household Members spouse Living Arrangements House Number of Floors (Floors) Two Floors Number of Stairs To Enter/Railing? 2 DARYL Home Environment High Toilet,Walk in Shower Home Equipment Front Wheel Walker,Straight Cane,Shower Seat without Backrest,Hand Held Shower Additional Social History Comment Lives on main floor, but laundry room is downstairs (10 steps with 1 hand rail). Her is able to assist 16/09 but is hard of hearing M1 PT/OT-IP Prior Functional Status Start: 10/31/22 10:35 Freq: NEEDED Status: Active Protocol: Document 10/31/22 10:36 AB (Rec: 10/31/22 10:58 AB [id number]) Medical Review Prior Functional Status Medical History Reviewed Yes Communication Independent Mobility and Gait Able to walk without a device. Activities of Daily Living and IADL's Able to do ADL and IADL needs Social History Household Members spouse Living Arrangements House Number of Floors (Floors) Two Floors Number of Stairs To Enter/Railing? 2 DARYL Home Environment High Toilet,Walk in Shower Home Equipment Front Wheel Walker,Straight Cane,Shower Seat without Backrest,Hand Held Shower Additional Social History Comment Lives on main floor, but laundry room is downstairs (10 steps with 1 hand rail). Her is able to assist 16/09 but is hard of hearing M2 PT-IP Current Condition Start: 10/31/22 10:35 Freq: NEEDED Status: Active Protocol: Document 10/31/22 10:36 AB (Rec: 10/31/22 10:58 AB [id number]) Physical Therapy Current Condition Current Condition Evaluation Date 10/31/22 Treatment Diagnosis s/p C5-C6, C6-C7 fusion Onset Date 10/30/22 M3 PT-IP Subjective Start: 10/31/22 10:35 Freq: NEEDED Status: Active Protocol: Document 10/31/22 10:36 AB (Rec: 10/31/22 10:58 AB [id number]) Subjective Physical Therapy Visit Type Type Initial Evaluation Visit Start Time 10:00 Visit Stop Time 10:32 Total Visit Minutes 32 Notes Pt presents seated in chair with all needs met and call light within reach. Number of [employer] OPERATOR Visits 0 Physical Therapy Visit Comments Patient Comments The pt reports she is not having any pain currently and is agreeable to PT evaluation this morning. Patient Goals To get back home and to her daily routine. Therapy Pain Assessment Pain When Pain Assessed During Mobility Pain Present Pain Present Denied Pain M4 PT-IP Mobility and Gait Start: 10/31/22 10:35 Freq: NEEDED Status: Active Protocol: Document 10/31/22 10:36 AB (Rec: 10/31/22 10:58 AB [id number]) PT-Bed Mobility Assessment Rolling Type of Rolling Log Rolling Level of Assist Independent Supine to Sit Supine to Sit Independent Sit to Supine Sit to Supine Independent Scooting Scooting to Edge of Bed Independent PT-Transfer Assessment Sit to and From Stand Sit to and from Stand Independent Equipment Transfer Assistive Device Gait Belt Transfers Transfer Destination Bed,Chair Transfer Technique Stand Step Pivot Transfer Ability Level of Assist Independent Gait Assessment Gait Gait Assistance Required: Standby Assistance Distance (Feet) 300 Assistive Devices Assistive Device None,Front Wheeled Walker Gait Deviations General Gait Pattern Within Normal Limits Comments Gait Comments Pt able to ambulate with FWW and without AD using SBA. No instability or significant gait deviations noted Stair Climbing Assessment Evaluation Level of Assist On Stairs Standby Assistance Devices Stair Climbing Assistive Devices Right Railing Technique/Endurance Stair Climbing Direction Ascend and Descend Stair Climbing Technique Step Over Step,Step to Step Number of Steps Climbed 10 Query Text: Stair Climbing Set # Repetitions (reps) 2 Comments Stair Climbing Comments Able to ascend/descend steps with step over step technique when using 1 hand rail, but uses step to step technique without hand rail. PT-Balance Assessment Sitting Balance and Reactions Static Sitting Balance Ability Normal Dynamic Sitting Balance Ability Normal Standing Balance and Reactions Static Standing Balance Ability Normal Dynamic Standing Balance Ability Normal Functional Assessments Other Functional Tests Performed [facility]: M5 PT-IP Objective Assessments Start: 10/31/22 10:35 Freq: NEEDED Status: Active Protocol: Document 10/31/22 10:36 AB (Rec: 10/31/22 10:58 AB [id number]) Orientation Orientation/Cognition Level of Alertness Alert Orientation Name,Date,Place,Situation Language Function Ability No Deficits Noted Safety Awareness Understands Safety Issues Memory Description No Deficits Noted Gross Range of Motion Upper Extremity ROM Assessment Within Functional Limits Lower Extremity ROM Assessment Within Functional Limits Strength Upper Extremity Strength Assessment Within Functional Limits Lower Extremity Strength Assessment Within Functional Limits M6 PT-IP Treatment Start: 10/31/22 10:35 Freq: NEEDED Status: Active Protocol: Document 10/31/22 10:36 AB (Rec: 10/31/22 10:58 AB [id number]) Physical Therapy Treatment Education Education Provided Precautions,Post-Op Packet, Safety Brace Education Patient,Caregiver Other Treatments Other Treatment Performed Stairs 1x10 steps (in addition to evaluation) M7 PT-IP Assessment and Plan Start: 10/31/22 10:35 Freq: NEEDED Status: Active Protocol: Document 10/31/22 10:36 AB (Rec: 10/31/22 10:58 AB [id number]) PT Summary Assessment and Plan Potential Rehabilitation Potential Excellent Status of Condition at Evaluation Stable Summary Impairments Pain,ROM,Activity Tolerance Assessment Summary Linda Conner is an 81 year old female patient who is s/p C5- C6, C6-C7 fusion performed on 10/30/22. Today's PT evaluation revealed that the patient is independent with all functional mobility including bed mobility, STS and transfers, and requires only SBA for ambulation of long distances and stairs. The patient is able to ambulate over 300ft with and without an AD, and is able to ascend/ descend 10 steps with a hand rail. No significant balance or gait deficits were noted during today's evaluation. She demonstrates good safety awareness and no cognitive deficits were noted. Based on these findings, discharge to home with her spouse is recommended at this time. In the future, the patient may benefit from outpatient PT to improve post surgical outcomes , based on her surgeon's discretion. Goals Bed Mobility Goal Independent Transfer Goal Independent Gait Goal Independent Gait Distance 500 Days to Meet Goals 5 Frequency of Treatment Frequency Of Treatment Discharge Treatment Plan Physical Therapy Treatment Plan Gait Training,Therapeutic Exercise,Post Op Education, Discharge Planning,Hot or Cold Pack,Neuromuscular Re-ed, Manual Therapy Other Recommendations and Next Treatment PT only as needed. Focus Precautions Cervical Spine Precautions Soft Collar for Comfort,Log Roll Recommendations To Nursing Amount of Assist Needed Independent,Standby Assistance ,1 Person Assist Discharge Recommendations PT Discharge Recommendations Home Other Discharge Recommendations Outpatient PT may be needed based on surgeon's recommendations. Transportation Needs at Discharge Private Vehicle
== END 2022-10-31 11:13 | disposition home or self-care (01) | DRG 473 ==
PROVIDERS: Admitting Provider Orthopaedic Surgery Orthopaedic Surgery of the Spine; PCP Internal Medicine; Referring Provider Orthopaedic Surgery Orthopaedic Surgery of the Spine; Visit Provider Orthopaedic Surgery Orthopaedic Surgery of the Spine
PROC: 0RG20A0 Fusion of 2 or more Cervical Vertebral Joints with Interbody Fusion Device, Anterior Approach, Anterior Column, Open Approach (ICD-10-PCS; principal; 2022-10-30 12:45)
DX: M48.02 Spinal stenosis, cervical region (principal); M54.12 Radiculopathy, cervical region; I10 Essential (primary) hypertension; K21.9 Gastro-esophageal reflux disease without esophagitis; M19.90 Unspecified osteoarthritis, unspecified site; Z96.643 Presence of artificial hip joint, bilateral; Z96.651 Presence of right artificial knee joint
CPT/HCPCS: 72040; 76000; 97161; 97165; 97530; 97535; C1713; J0171; J0690; J1100; J1170; J2250; J2405; J2704; J3010